=== PATIENT | female | born 1935 | race African-American/Black ===

== ENCOUNTER 2016-11-25 07:04 | Inpatient (IN) | payer MEDICARE, MEDICAID ==
[~2016-11-25] VITALS: Ht 157.5 cm; Wt 71.0 kg
[2016-11-25] VITALS (8 sets, daily range): BP systolic 107–139; BP diastolic 57–76
[~2016-11-25 07:04] MED LIST: ACET-2178 GT; LEVO137T32 GT; ZINC SULFATE GT; duoneb INH; levemir SQ; vitamin c GT
[2016-11-25] MEDS ORDERED: IPRATROPIUM BROMIDE (0.02%) 0.5MG/2.5ML NEB HHN STA (07:29)
[2016-11-25] MEDS ORDERED: METHYLPREDNISOLONE SOD SUCC 125 MG/2 ML VIAL IV STA (07:29)
[2016-11-25] MEDS ORDERED: ALBUTEROL (0.083%) 2.5MG/3ML NEB HHN STA (07:29)
[2016-11-25 07:48] LABS: BASOPHILS % 0.3 % (0.0-2.0); EOSINOPHILS % 1.6 % (0.0-5.0); HEMATOCRIT. 32.9 % (36.0-48.0); HEMOGLOBIN. 10.8 g/dL (12.0-16.0); LYMPHOCYTES % 19.5 % (20.0-50.0); MEAN CORPUSCULAR HEMOGLOBIN 29.6 pg (28.0-32.0); MEAN CORPUSCULAR VOLUME 90.5 fL (81.0-99.0); MEAN PLATELET VOLUME 8.7 fl (7.4-10.4); MONOCYTES % 7.8 % (2.0-8.0); NEUTROPHILS % 70.8 % (40.0-76.0); PLATELET 287 x1000/uL (130-400); RED BLOOD CELL COUNT 3.64 mill/uL (4.2-5.4); RED CELL DISTRIBUTION WIDTH 20.5 % (11.6-14.6)
[2016-11-25 07:54] LABS: PROTHROMBIN TIME 10.3 sec (9.4-11.6)
[2016-11-25 08:06] LABS: CARBON DIOXIDE 33 mEq/L (21-32); CHLORIDE 88 mEq/L (98-107); TROPONIN I 0.11 ng/mL (0.00-0.04)
[2016-11-25] MEDS ORDERED: SODIUM CHLORIDE 0.9% 1000ML BAG (SEPSIS BOLUS) IV ONE (08:15)
[2016-11-25] MEDS ORDERED: PIPERACILLIN/TAZ 3.375G PREMIX 50 ML IV ONE (08:30)
[2016-11-25] MEDS ORDERED: LEVOFLOXACIN 750MG PREMIX 150 ML IV ONE (08:30)
[2016-11-25 08:55] LABS: CLARITY URINE TURBID (CLEAR); COLOR URINE YELLOW (YELLOW); GLUCOSE URINE NEGATIVE (NEGATIVE); KETONES URINE NEGATIVE (NEGATIVE); LEUKOCYTE ESTERASE URINE TRACE (NEGATIVE); NITRITE URINE NEGATIVE (NEGATIVE); OCCULT BLOOD URINE NEGATIVE (NEGATIVE); PH URINE >=9.0 (4.5-8.0); PROTEIN URINE TRACE (NEGATIVE); SPECIFIC GRAVITY URINE 1.014 (1.005-1.030)
[2016-11-25] MEDS ORDERED: MAGN800O GT (12:36)
[2016-11-25] MEDS ORDERED: ACET-2178 GT (12:36)
[2016-11-25] MEDS ORDERED: FERR-71 GT (12:36)
[2016-11-25] MEDS ORDERED: ALBU2.5V13 IH (12:36)
[2016-11-25] MEDS ORDERED: ZINC220T GT (12:36)
[2016-11-25] MEDS ORDERED: LEVVL SQ (12:36)
[2016-11-25] MEDS ORDERED: BISA-81 GT (12:36)
[2016-11-25] MEDS ORDERED: MULT-1146 GT (12:36)
[2016-11-25] MEDS ORDERED: FAMO-134 GT (12:36)
[2016-11-25] MEDS ORDERED: DOCU-138 GT (12:36)
[2016-11-25] MEDS ORDERED: VITAMINE C GT (12:36)
[2016-11-25] MEDS ORDERED: HYDR-523 GT (12:36)
[2016-11-25] MEDS ORDERED: LEVO50TA GT (12:36)
[2016-11-25] MEDS ORDERED: ONDA4TAB5 GT (12:36)
[2016-11-25] MEDS ORDERED: IPRATROPIUM/ALBUTEROL 0.5-3(2.5)MG/3ML NEB INH PRN (13:15)
[2016-11-25] MEDS ORDERED: ACETAMINOPHEN 325MG TABLET GT PRN (13:15)
[2016-11-25] MEDS ORDERED: ONDANSETRON HCL 4MG/2ML VIAL IV PRN (13:15)
[2016-11-25] MEDS ORDERED: VANCOMYCIN 1 G PREMIX 200 ML IV SCH (13:15)
[2016-11-25] MEDS ORDERED: HYDROCODONE/ACETAMINOPHEN 5/325MG TABLET GT PRN (13:15)
[2016-11-25] MEDS ORDERED: SODIUM CHLORIDE 0.9% 1,000 ML IV SCH (13:15)
[2016-11-25] MEDS ORDERED: CEFTAZIDIME PENTAHYDRATE 1 G in DEXTROSE 5% WATER 50 ML IV SCH (13:15)
[2016-11-25] MEDS ORDERED: DEXTROSE 50% WATER 50ML SYRINGE IV PRN (13:45)
[2016-11-25] MEDS ORDERED: LORAZEPAM 1MG TABLET GT PRN (13:45)
[2016-11-25] MEDS ORDERED: LACTULOSE 20G/30ML UDC GT PRN (13:45)
[2016-11-25] MEDS: PANTOPRAZOLE SODIUM 40 MG/VIAL IV SCH (14:02)
[2016-11-25] MEDS: ENOXAPARIN 40MG/0.4ML SYR SUBCUT SCH (14:02)
[2016-11-25] MEDS: INSULIN LISPRO 100 UNITS/ML SUBCUT SCH ×2 (14:05→17:30)
[2016-11-25] MEDS: CEFTAZIDIME PENTAHYDRATE 1 G in DEXTROSE 5% WATER 50 ML IV SCH ×2 (14:49→23:46)
[2016-11-25] MEDS: SODIUM CHL 0.9% + KCL 20MEQ/L 1,000 ML IV SCH (14:49)
[2016-11-25] MEDS ORDERED: VANCOMYCIN 1250MG in DEXTROSE 5% WATER 250ML IV SCH (15:00)
[2016-11-25 15:31] LABS: BG BASE EXCESS 3.5 mmol/L (-2.0-2.0); BG CARBOXYHEMOGLOBIN 0.6 % (0.5-1.5); BG DEOXYHEMOGLOBIN 2.4 % (0.0-5.0); BG FRACTION INSPIRED OXYGEN 40; BG HCO3 ACT 28.6 mmol/L (22.0-26.0); BG METHEMOGLOBIN 0.2 % (0.0-1.5); BG OXYGEN SATURATION 97.6 % (92.0-98.5); BG OXYHEMOGLOBIN 96.8 % (94.0-97.0); BG PH 7.412 (7.350-7.450); BG PO2 101.3 mmHg (75.0-100.0); BG SAMPLE SITE RIGHT RADIAL; BG TIDAL VOLUME(mL) 450 mL; BG TOTAL HEMOGLOBIN 11.2 g/dL (12.0-18.0); BG VENT MODE VENT - A/C; BG VENT RATE 12 set
[2016-11-25] MEDS ORDERED: BLOOD SUGAR DIAGNOSTIC STRIP TEST SCH (17:30)
[2016-11-25] MEDS ORDERED: INSULIN LISPRO 100 UNITS/ML SUBCUT SCH (18:00)
[2016-11-25] MEDS: IPRATROPIUM/ALBUTEROL 0.5-3(2.5)MG/3ML NEB HHN SCH (20:24)
[2016-11-25] MEDS ORDERED: FAMOTIDINE 20MG TABLET GT SCH (21:00)
[2016-11-25] MEDS: BLOOD SUGAR DIAGNOSTIC STRIP TEST SCH (23:46)
[2016-11-26] VITALS (12 sets, daily range): BP systolic 113–149; BP diastolic 63–82
[2016-11-26] MEDS: IPRATROPIUM/ALBUTEROL 0.5-3(2.5)MG/3ML NEB HHN SCH ×4 (02:27→20:17)
[2016-11-26] MEDS: SODIUM CHL 0.9% + KCL 20MEQ/L 1,000 ML IV SCH ×3 (06:40→23:45)
[2016-11-26] MEDS: BLOOD SUGAR DIAGNOSTIC STRIP TEST SCH ×3 (06:40→17:24)
[2016-11-26] MEDS: LEVOTHYROXINE SODIUM 75MCG TABLET GT SCH (06:40)
[2016-11-26] MEDS: INSULIN LISPRO 100 UNITS/ML SUBCUT SCH ×4 (06:53→17:27)
[2016-11-26 07:28] LABS: HEMATOCRIT. 28.6 % (36.0-48.0); HEMOGLOBIN. 9.6 g/dL (12.0-16.0); MEAN CORPUSCULAR HEMOGLOBIN 30.4 pg (28.0-32.0); MEAN CORPUSCULAR VOLUME 90.4 fL (81.0-99.0); MEAN PLATELET VOLUME 8.8 fl (7.4-10.4); PLATELET 273 x1000/uL (130-400); RED BLOOD CELL COUNT 3.16 mill/uL (4.2-5.4); RED CELL DISTRIBUTION WIDTH 19.9 % (11.6-14.6)
[2016-11-26 08:08] LABS: CARBON DIOXIDE 32 mEq/L (21-32); CHLORIDE 97 mEq/L (98-107)
[2016-11-26] MEDS: PANTOPRAZOLE SODIUM 40 MG/VIAL IV SCH (08:24)
[2016-11-26] MEDS: DOCUSATE SODIUM SUGAR FREE 100MG/10ML UDC NG SCH (08:24)
[2016-11-26] MEDS: ENOXAPARIN 40MG/0.4ML SYR SUBCUT SCH (08:25)
[2016-11-26] MEDS: CEFTAZIDIME PENTAHYDRATE 1 G in DEXTROSE 5% WATER 50 ML IV SCH ×2 (08:25→20:22)
[2016-11-26] MEDS: INSULIN DETEMIR UD 100 UNITS/ML SYR SUBCUT SCH (10:23)
[2016-11-26] MEDS ORDERED: POTASSIUM PHOS,M-BASIC-D-BASIC 20 MMOL in DEXT 5% WATER 243.3333 ML IV NR (11:00)
[2016-11-26] MEDS: VANCOMYCIN 1 G PREMIX 200 ML IV SCH (11:59)
[2016-11-26 16:52] LABS: PLATELET ESTIMATE NORMAL
[2016-11-27] VITALS (13 sets, daily range): BP systolic 105–143; BP diastolic 55–88
[2016-11-27] MEDS: BLOOD SUGAR DIAGNOSTIC STRIP TEST SCH ×4 (00:36→17:38)
[2016-11-27] MEDS: INSULIN LISPRO 100 UNITS/ML SUBCUT SCH ×4 (00:45→17:49)
[2016-11-27] MEDS: IPRATROPIUM/ALBUTEROL 0.5-3(2.5)MG/3ML NEB HHN SCH ×4 (01:49→20:40)
[2016-11-27] MEDS: SODIUM CHL 0.9% + KCL 20MEQ/L 1,000 ML IV SCH ×2 (04:30→17:47)
[2016-11-27] MEDS: VANCOMYCIN 1 G PREMIX 200 ML IV SCH (06:25)
[2016-11-27] MEDS: LEVOTHYROXINE SODIUM 75MCG TABLET GT SCH (06:29)
[2016-11-27 07:36] LABS: HEMATOCRIT. 27.2 % (36.0-48.0); MEAN CORPUSCULAR HEMOGLOBIN 29.5 pg (28.0-32.0); MEAN CORPUSCULAR VOLUME 89.3 fL (81.0-99.0); RED BLOOD CELL COUNT 3.05 mill/uL (4.2-5.4); RED CELL DISTRIBUTION WIDTH 20.6 % (11.6-14.6)
[2016-11-27 08:32] LABS: CARBON DIOXIDE 30 mEq/L (21-32); CHLORIDE 102 mEq/L (98-107); PHOSPHORUS 1.4 mg/dL (2.5-4.9); VANCOMYCIN TROUGH 13.6 ug/mL (5.0-10.0)
[2016-11-27] MEDS: PANTOPRAZOLE SODIUM 40 MG/VIAL IV SCH (09:33)
[2016-11-27] MEDS: CEFTAZIDIME PENTAHYDRATE 1 G in DEXTROSE 5% WATER 50 ML IV SCH ×2 (09:33→21:14)
[2016-11-27] MEDS: DOCUSATE SODIUM SUGAR FREE 100MG/10ML UDC NG SCH (09:33)
[2016-11-27] MEDS: ENOXAPARIN 40MG/0.4ML SYR SUBCUT SCH (09:33)
[2016-11-27] MEDS: INSULIN DETEMIR UD 100 UNITS/ML SYR SUBCUT SCH (10:10)
[2016-11-27] MEDS ORDERED: POTASSIUM PHOS,M-BASIC-D-BASIC 20 MMOL in DEXT 5% WATER 243.3333 ML IV SCH (11:00)
[2016-11-27] MEDS ORDERED: LIDOCAINE HCL 1% 20ML VIAL (Pyxis) INJ ONE (11:17)
[2016-11-27] MEDS ORDERED: SODIUM BICARBONATE 4% (2.4MEQ) 5ML VIAL IV ONE (11:17)
[2016-11-27 11:39] LABS: PLATELET ESTIMATE NORMAL
[2016-11-27 11:40] LABS: MEAN PLATELET VOLUME 9.6 fl (7.4-10.4); PLATELET 227 x1000/uL (130-400)
[2016-11-27] MEDS ORDERED: HEPARIN 100 UNITS/1 ML VIAL IVF PRN (12:15)
[2016-11-28] VITALS (15 sets, daily range): BP systolic 92–149; BP diastolic 51–81
[2016-11-28] MEDS: INSULIN LISPRO 100 UNITS/ML SUBCUT SCH ×4 (00:29→18:07)
[2016-11-28] MEDS: VANCOMYCIN 1 G PREMIX 200 ML IV SCH ×2 (00:30→21:42)
[2016-11-28] MEDS: BLOOD SUGAR DIAGNOSTIC STRIP TEST SCH ×4 (00:30→17:29)
[2016-11-28] MEDS: IPRATROPIUM/ALBUTEROL 0.5-3(2.5)MG/3ML NEB HHN SCH ×4 (02:19→20:16)
[2016-11-28] MEDS: LEVOTHYROXINE SODIUM 75MCG TABLET GT SCH (06:23)
[2016-11-28] MEDS: SODIUM CHL 0.9% + KCL 20MEQ/L 1,000 ML IV SCH ×2 (06:25→14:23)
[2016-11-28 06:55] LABS: HEMATOCRIT. 29.1 % (36.0-48.0); HEMOGLOBIN. 9.6 g/dL (12.0-16.0); MEAN CORPUSCULAR HEMOGLOBIN 30.2 pg (28.0-32.0); MEAN CORPUSCULAR VOLUME 91.5 fL (81.0-99.0); MEAN PLATELET VOLUME 8.6 fl (7.4-10.4); PLATELET 246 x1000/uL (130-400); RED BLOOD CELL COUNT 3.18 mill/uL (4.2-5.4); RED CELL DISTRIBUTION WIDTH 20.3 % (11.6-14.6)
[2016-11-28 07:20] LABS: CARBON DIOXIDE 28 mEq/L (21-32); CHLORIDE 100 mEq/L (98-107); PHOSPHORUS 1.6 mg/dL (2.5-4.9)
[2016-11-28] MEDS: ENOXAPARIN 40MG/0.4ML SYR SUBCUT SCH (08:28)
[2016-11-28] MEDS: DOCUSATE SODIUM SUGAR FREE 100MG/10ML UDC NG SCH (08:28)
[2016-11-28] MEDS: CEFTAZIDIME PENTAHYDRATE 1 G in DEXTROSE 5% WATER 50 ML IV SCH ×2 (08:28→20:11)
[2016-11-28] MEDS: PANTOPRAZOLE SODIUM 40 MG/VIAL IV SCH (08:28)
[2016-11-28] MEDS: INSULIN DETEMIR UD 100 UNITS/ML SYR SUBCUT SCH (11:33)
[2016-11-28] MEDS: POTASSIUM-SODIUM PHOSPHATE POWDER PACKET PO SCH ×2 (14:24→17:09)
[2016-11-28 17:12] LABS: T4 FREE 0.53 ng/dL (0.76-1.46)
[2016-11-28 17:16] LABS: PLATELET ESTIMATE NORMAL
[2016-11-28] MEDS ORDERED: POTASSIUM PHOS,M-BASIC-D-BASIC 20 MMOL in DEXT 5% WATER 243.3333 ML IV NR (21:00)
[2016-11-29] VITALS (10 sets, daily range): BP systolic 99–181; BP diastolic 50–94
[2016-11-29] MEDS: INSULIN LISPRO 100 UNITS/ML SUBCUT SCH ×3 (00:01→12:10)
[2016-11-29] MEDS: IPRATROPIUM/ALBUTEROL 0.5-3(2.5)MG/3ML NEB HHN SCH ×3 (02:01→12:28)
[2016-11-29 07:00] LABS: HEMATOCRIT. 28.6 % (36.0-48.0); HEMOGLOBIN. 9.6 g/dL (12.0-16.0); MEAN CORPUSCULAR HEMOGLOBIN 30.5 pg (28.0-32.0); MEAN CORPUSCULAR VOLUME 90.6 fL (81.0-99.0); MEAN PLATELET VOLUME 8.2 fl (7.4-10.4); PLATELET 232 x1000/uL (130-400); RED BLOOD CELL COUNT 3.16 mill/uL (4.2-5.4); RED CELL DISTRIBUTION WIDTH 20.2 % (11.6-14.6)
[2016-11-29 08:09] LABS: CARBON DIOXIDE 26 mEq/L (21-32); CHLORIDE 101 mEq/L (98-107); PHOSPHORUS 2.6 mg/dL (2.5-4.9)
[2016-11-29] MEDS ORDERED: LEVOTHYROXINE SODIUM 100MCG TABLET GT SCH (09:00)
[2016-11-29] MEDS ORDERED: FAMOTIDINE 20MG/2ML VIAL IV SCH (09:00)
[2016-11-29] MEDS: ENOXAPARIN 40MG/0.4ML SYR SUBCUT SCH (09:40)
[2016-11-29] MEDS: DOCUSATE SODIUM SUGAR FREE 100MG/10ML UDC NG SCH (09:41)
[2016-11-29] MEDS: CEFTAZIDIME PENTAHYDRATE 1 G in DEXTROSE 5% WATER 50 ML IV SCH (09:42)
[2016-11-29] MEDS: INSULIN DETEMIR UD 100 UNITS/ML SYR SUBCUT SCH (09:43)
[2016-11-29] MEDS: POTASSIUM-SODIUM PHOSPHATE POWDER PACKET PO SCH (09:45)
[2016-11-29] MEDS: BLOOD SUGAR DIAGNOSTIC STRIP TEST SCH ×3 (12:00→12:11)
[2016-11-29] MEDS ORDERED: FUROSEMIDE 40MG/4ML VIAL IVP SCH (13:00)
[2016-11-29] MEDS: VANCOMYCIN 1 G PREMIX 200 ML IV SCH (13:07)
[2016-11-29 16:11] LABS: PLATELET ESTIMATE NORMAL
== END 2016-11-29 17:40 | DRG 720 ==
LOC: ER 07:38 → 5EST 08:36 → EDBEDREQ 08:39 → EDBEDREQTM 08:39 → ENRESERV 09:18 → 5EST 21:55
PROVIDERS: ADMIT Internal Medicine; ATTEND Internal Medicine
PROC: 5A1955Z Respiratory Ventilation, Greater than 96 Consecutive Hours (ICD-10-PCS; principal; 2016-11-25)
PROC: 02HV33Z Insertion of Infusion Device into Superior Vena Cava, Percutaneous Approach (ICD-10-PCS; 2016-11-27)
PROC: B548ZZA Ultrasonography of Superior Vena Cava, Guidance (ICD-10-PCS; 2016-11-27)
DX: A41.9 Sepsis, unspecified organism (principal); J96.21 Acute and chronic respiratory failure with hypoxia; J69.0 Pneumonitis due to inhalation of food and vomit; E43 Unspecified severe protein-calorie malnutrition; G82.50 Quadriplegia, unspecified; G93.40 Encephalopathy, unspecified; L89.154 Pressure ulcer of sacral region, stage 4; J95.851 Ventilator associated pneumonia; E86.0 Dehydration; E11.65 Type 2 diabetes mellitus with hyperglycemia; D64.9 Anemia, unspecified; G35 Multiple sclerosis; B96.20 Unspecified Escherichia coli [E. coli] as the cause of diseases classified elsewhere; E03.9 Hypothyroidism, unspecified; E83.39 Other disorders of phosphorus metabolism; E87.6 Hypokalemia; F03.90 Unspecified dementia, unspecified severity, without behavioral disturbance, psychotic disturbance, mood disturbance, and anxiety; I25.10 Atherosclerotic heart disease of native coronary artery without angina pectoris; E11.51 Type 2 diabetes mellitus with diabetic peripheral angiopathy without gangrene; J44.9 Chronic obstructive pulmonary disease, unspecified; K21.9 Gastro-esophageal reflux disease without esophagitis; M19.90 Unspecified osteoarthritis, unspecified site; N39.0 Urinary tract infection, site not specified; R13.10 Dysphagia, unspecified; Z79.899 Other long term (current) drug therapy; Z99.11 Dependence on respirator [ventilator] status; Z93.0 Tracheostomy status; Z93.1 Gastrostomy status; Z86.73 Personal history of transient ischemic attack (TIA), and cerebral infarction without residual deficits; Z68.28 Body mass index [BMI] 28.0-28.9, adult
CPT/HCPCS: 36415; 36569; 36600; 71010; 76937; 80048; 80053; 80202; 81001; 82375; 82805; 82962; 83605; 83735; 83880; 84100; 84439; 84443; 84481; 84484; 85025; 85610; 87040; 87077; 87086; 87186; 93005; 94002; 94003; 94640; 94664; 96365; 96375; 99291; A6261; C1725; C9113; J0713; J1650; J1815; J1940; J1956; J2543; J2930; J3370; J3480; J3490; J7030; J7040; J7050; J7060; J7611; J7620; A4315

== ENCOUNTER 2017-08-07 12:02 | Inpatient (IN) | payer MEDICARE, MEDICAID ==
[~2017-08-07] VITALS: Ht 157.5 cm; Wt 79.4 kg
[~2017-08-07 12:02] MED LIST changes: +ALBU2.5V13 IH; +BISA-81 GT; +DOCU-138 GT; +FAMO-134 GT; +FERR-71 GT; +HYDR-523 GT; +LEVO50TA GT; +LEVVL SQ; +MAGN800O GT; +MULT-1146 GT; +ONDA4TAB5 GT; +VITAMINE C GT; +ZINC220T GT
[2017-08-07 13:37] LABS: EOSINOPHILS % 0.4 % (0.0-5.0); HEMATOCRIT. 21.7 % (36.0-48.0); HEMOGLOBIN. 7.2 g/dL (12.0-16.0); LYMPHOCYTES % 12.4 % (20.0-50.0); MEAN CORPUSCULAR HEMOGLOBIN 27.1 pg (28.0-32.0); MEAN CORPUSCULAR VOLUME 81.9 fL (81.0-99.0); MONOCYTES % 9.3 % (2.0-8.0); NEUTROPHILS % 76.9 % (40.0-76.0); PLATELET 510 x1000/uL (130-400); RED BLOOD CELL COUNT 2.65 mill/uL (4.2-5.4); RED CELL DISTRIBUTION WIDTH 17.4 % (11.6-14.6)
[2017-08-07 13:42] LABS: CHLORIDE 63 mEq/L (98-107)
[2017-08-07 13:46] LABS: PARTIAL THROMBOPLASTIN TIME 25.7 sec (23.4-31.0); PROTHROMBIN TIME 10.7 sec (9.4-11.6)
[2017-08-07 20:00] VITALS: BP_SYST 105; BP_SYST 96; BP_DIAS 46; BP_DIAS 71
[2017-08-07] MEDS ORDERED: IPRATROPIUM/ALBUTEROL 0.5-3(2.5)MG/3ML NEB HHN PRN (20:15)
[2017-08-07] MEDS ORDERED: ACETAMINOPHEN 325MG TABLET GT PRN (20:15)
[2017-08-07] MEDS ORDERED: DEXTROSE 50% WATER 50ML SYRINGE IV PRN ×3 (20:15)
[2017-08-07] MEDS ORDERED: HYDROCODONE/ACETAMINOPHEN 5/325MG TABLET PO PRN (20:15)
[2017-08-07] MEDS ORDERED: BLOOD SUGAR DIAGNOSTIC STRIP TEST SCH (21:00)
[2017-08-07] MEDS ORDERED: INSULIN LISPRO 100 UNITS/ML SUBCUT SCH (21:00)
[2017-08-07] MEDS: FAMOTIDINE 20MG TABLET GT SCH (21:33)
[2017-08-07 22:00] VITALS: BP 133/70
[2017-08-07 22:15] VITALS: BP 112/52
[2017-08-07 22:30] VITALS: BP 105/56
[2017-08-07 23:30] VITALS: BP 103/65
[2017-08-08] VITALS (13 sets, daily range): BP systolic 84–116; BP diastolic 32–61
[2017-08-08] MEDS: INSULIN LISPRO 100 UNITS/ML SUBCUT SCH ×4 (00:25→18:31)
[2017-08-08] MEDS: BLOOD SUGAR DIAGNOSTIC STRIP TEST SCH ×4 (00:26→18:05)
[2017-08-08 07:12] LABS: BASOPHILS % 0.2 % (0.0-2.0); EOSINOPHILS % 0.3 % (0.0-5.0); HEMATOCRIT. 26.8 % (36.0-48.0); LYMPHOCYTES % 7.4 % (20.0-50.0); MEAN CORPUSCULAR HEMOGLOBIN 28.3 pg (28.0-32.0); MEAN CORPUSCULAR VOLUME 84.3 fL (81.0-99.0); MEAN PLATELET VOLUME 8.1 fl (7.4-10.4); MONOCYTES % 5.5 % (2.0-8.0); NEUTROPHILS % 86.6 % (40.0-76.0); PLATELET 477 x1000/uL (130-400); RED BLOOD CELL COUNT 3.18 mill/uL (4.2-5.4); RED CELL DISTRIBUTION WIDTH 16.5 % (11.6-14.6)
[2017-08-08] MEDS ORDERED: LEVOTHYROXINE SODIUM 125MCG TABLET GT SCH (07:30)
[2017-08-08] MEDS: IPRATROPIUM/ALBUTEROL 0.5-3(2.5)MG/3ML NEB HHN SCH ×4 (08:15→23:43)
[2017-08-08 08:26] LABS: CLARITY URINE TURBID (CLEAR); COLOR URINE RED (YELLOW); KETONES URINE NEGATIVE (NEGATIVE); LEUKOCYTE ESTERASE URINE 3+ (NEGATIVE); NITRITE URINE POSITIVE (NEGATIVE); OCCULT BLOOD URINE 3+ (NEGATIVE); PH URINE >=9.0 (4.5-8.0); PROTEIN URINE 3+ (NEGATIVE); SPECIFIC GRAVITY URINE 1.015 (1.005-1.030)
[2017-08-08] MEDS ORDERED: DOCUSATE SODIUM SUGAR FREE 100MG/10ML UDC GT SCH (09:00)
[2017-08-08] MEDS ORDERED: POTASSIUM CHLORIDE 20MEQ/PACKET GT SCH (09:00)
[2017-08-08] MEDS: MULTIVITAMINS,THER W-MINERALS TABLET GT SCH (09:12)
[2017-08-08 09:16] LABS: BG BASE EXCESS 23.2 mmol/L (-2.0-2.0); BG CARBOXYHEMOGLOBIN 0.4 % (0.5-1.5); BG DEOXYHEMOGLOBIN 3.7 % (0.0-5.0); BG FRACTION INSPIRED OXYGEN 40; BG HCO3 ACT 47.8 mmol/L (22.0-26.0); BG METHEMOGLOBIN 0.2 % (0.0-1.5); BG OXYGEN SATURATION 96.3 % (92.0-98.5); BG OXYHEMOGLOBIN 95.7 % (94.0-97.0); BG PCO2 51.4 mmHg (35.0-45.0); BG PH 7.586 (7.350-7.450); BG PO2 79.5 mmHg (75.0-100.0); BG SAMPLE SITE RIGHT RADIAL; BG TIDAL VOLUME(mL) 450 mL; BG TOTAL HEMOGLOBIN 10.4 g/dL (12.0-18.0); BG VENT MODE VENT - A/C; BG VENT RATE 12 set
[2017-08-08 09:33] LABS: PHOSPHORUS 1.4 mg/dL (2.5-4.9)
[2017-08-08] MEDS ORDERED: INSULIN GLARGINE UD 100 UNITS/ML SYR SUBCUT SCH (10:00)
[2017-08-08] MEDS ORDERED: POLYETHYLENE GLYCOL 3350 (17GM) 1 DOSE PACK PO NR (10:00)
[2017-08-08] MEDS ORDERED: ACETAZOLAMIDE 250MG TABLET PO NR ×2 (11:00→16:00)
[2017-08-08] MEDS ORDERED: POTASSIUM PHOS,M-BASIC-D-BASIC 30 MMOL in SODIUM CHLORIDE 0.9% 500 ML IV SCH (11:00)
[2017-08-08] MEDS: CEFTRIAXONE 1,000 MG in DEXTROSE 5% WATER 50 ML IV SCH (11:12)
[2017-08-08] MEDS ORDERED: VANCOMYCIN 1250MG in DEXTROSE 5% WATER 250ML IV NR (17:00)
[2017-08-08] MEDS: DOCUSATE SODIUM SUGAR FREE 100MG/10ML UDC GT SCH (17:54)
[2017-08-08] MEDS: SODIUM CHL 0.9% + KCL 20MEQ/L 1,000 ML IV SCH (18:24)
[2017-08-08] MEDS: FAMOTIDINE 20MG TABLET GT SCH (21:48)
[2017-08-09] VITALS (12 sets, daily range): BP systolic 83–124; BP diastolic 40–68
[2017-08-09] MEDS: BLOOD SUGAR DIAGNOSTIC STRIP TEST SCH ×5 (00:54→23:41)
[2017-08-09] MEDS: INSULIN LISPRO 100 UNITS/ML SUBCUT SCH ×4 (00:54→17:57)
[2017-08-09] MEDS: SODIUM CHL 0.9% + KCL 20MEQ/L 1,000 ML IV SCH ×3 (01:31→17:40)
[2017-08-09] MEDS: IPRATROPIUM/ALBUTEROL 0.5-3(2.5)MG/3ML NEB HHN SCH ×4 (01:58→21:09)
[2017-08-09] MEDS: LEVOTHYROXINE SODIUM 175MCG TABLET GT SCH (06:36)
[2017-08-09 07:00] LABS: BASOPHILS % 0.2 % (0.0-2.0); EOSINOPHILS % 0.6 % (0.0-5.0); HEMATOCRIT. 27.5 % (36.0-48.0); HEMOGLOBIN. 9.2 g/dL (12.0-16.0); LYMPHOCYTES % 9.1 % (20.0-50.0); MEAN CORPUSCULAR HEMOGLOBIN 28.7 pg (28.0-32.0); MEAN CORPUSCULAR VOLUME 85.7 fL (81.0-99.0); MEAN PLATELET VOLUME 8.1 fl (7.4-10.4); MONOCYTES % 10.2 % (2.0-8.0); NEUTROPHILS % 79.9 % (40.0-76.0); PLATELET 428 x1000/uL (130-400); RED BLOOD CELL COUNT 3.21 mill/uL (4.2-5.4); RED CELL DISTRIBUTION WIDTH 17.2 % (11.6-14.6)
[2017-08-09 07:17] LABS: PHOSPHORUS 5.4 mg/dL (2.5-4.9)
[2017-08-09] MEDS: MULTIVITAMINS,THER W-MINERALS TABLET GT SCH (09:21)
[2017-08-09] MEDS: DOCUSATE SODIUM SUGAR FREE 100MG/10ML UDC GT SCH ×2 (09:21→17:40)
[2017-08-09] MEDS: CEFTRIAXONE 1,000 MG in DEXTROSE 5% WATER 50 ML IV SCH (09:22)
[2017-08-09 09:38] LABS: BG BASE EXCESS 12.9 mmol/L (-2.0-2.0); BG CARBOXYHEMOGLOBIN 0.6 % (0.5-1.5); BG DEOXYHEMOGLOBIN 3.2 % (0.0-5.0); BG FRACTION INSPIRED OXYGEN 40; BG HCO3 ACT 37.2 mmol/L (22.0-26.0); BG METHEMOGLOBIN 0.1 % (0.0-1.5); BG OXYGEN SATURATION 96.8 % (92.0-98.5); BG OXYHEMOGLOBIN 96.1 % (94.0-97.0); BG PCO2 47.2 mmHg (35.0-45.0); BG PH 7.515 (7.350-7.450); BG PO2 90.2 mmHg (75.0-100.0); BG SAMPLE SITE RIGHT RADIAL; BG TIDAL VOLUME(mL) 450 mL; BG TOTAL HEMOGLOBIN 9.7 g/dL (12.0-18.0); BG VENT MODE VENT - A/C; BG VENT RATE 12 set
[2017-08-09] MEDS ORDERED: INSULIN GLARGINE UD 100 UNITS/ML SYR SUBCUT SCH (10:00)
[2017-08-09] MEDS ORDERED: ACETAMINOPHEN 650MG/20.3ML UDC GT PRN (10:45)
[2017-08-09] MEDS: FAMOTIDINE 20MG TABLET GT SCH (20:54)
[2017-08-09] MEDS: ACETYLCYSTEINE 100MG/ML 10% VIAL 4ML INH SCH (21:08)
[2017-08-09] MEDS ORDERED: VANCOMYCIN 750 MG PREMIX 150 ML IV SCH (23:00)
[2017-08-10] VITALS (12 sets, daily range): BP systolic 91–122; BP diastolic 40–82
[2017-08-10] MEDS: INSULIN LISPRO 100 UNITS/ML SUBCUT SCH ×4 (00:13→18:38)
[2017-08-10] MEDS: IPRATROPIUM/ALBUTEROL 0.5-3(2.5)MG/3ML NEB HHN SCH ×4 (01:11→21:15)
[2017-08-10] MEDS: BLOOD SUGAR DIAGNOSTIC STRIP TEST SCH ×3 (06:00→18:00)
[2017-08-10 07:29] LABS: BASOPHILS % 0.4 % (0.0-2.0); EOSINOPHILS % 1.8 % (0.0-5.0); HEMATOCRIT. 26.3 % (36.0-48.0); HEMOGLOBIN. 8.9 g/dL (12.0-16.0); LYMPHOCYTES % 15.3 % (20.0-50.0); MEAN CORPUSCULAR HEMOGLOBIN 29.1 pg (28.0-32.0); MEAN CORPUSCULAR VOLUME 86.4 fL (81.0-99.0); MEAN PLATELET VOLUME 7.9 fl (7.4-10.4); MONOCYTES % 13.3 % (2.0-8.0); NEUTROPHILS % 69.2 % (40.0-76.0); PLATELET 420 x1000/uL (130-400); RED BLOOD CELL COUNT 3.05 mill/uL (4.2-5.4); RED CELL DISTRIBUTION WIDTH 16.9 % (11.6-14.6)
[2017-08-10] MEDS: ACETYLCYSTEINE 100MG/ML 10% VIAL 4ML INH SCH (08:19)
[2017-08-10] MEDS: MULTIVITAMINS,THER W-MINERALS TABLET GT SCH (08:24)
[2017-08-10] MEDS: LEVOTHYROXINE SODIUM 175MCG TABLET GT SCH (08:24)
[2017-08-10] MEDS: CEFTRIAXONE 1 G PREMIX 50 ML IV SCH (08:25)
[2017-08-10] MEDS: DOCUSATE SODIUM SUGAR FREE 100MG/10ML UDC GT SCH ×2 (08:25→18:15)
[2017-08-10] MEDS ORDERED: KCL 20MEQ/100ML PREMIX 100 ML IV NR ×2 (09:00→13:00)
[2017-08-10] MEDS ORDERED: ACETAZOLAMIDE 250MG TABLET PO NR ×2 (09:00→16:00)
[2017-08-10 09:23] LABS: BG BASE EXCESS 13.9 mmol/L (-2.0-2.0); BG CARBOXYHEMOGLOBIN 0.7 % (0.5-1.5); BG DEOXYHEMOGLOBIN 1.5 % (0.0-5.0); BG FRACTION INSPIRED OXYGEN 40; BG HCO3 ACT 38.5 mmol/L (22.0-26.0); BG METHEMOGLOBIN 0.2 % (0.0-1.5); BG OXYGEN SATURATION 98.5 % (92.0-98.5); BG OXYHEMOGLOBIN 97.6 % (94.0-97.0); BG PCO2 50.1 mmHg (35.0-45.0); BG PH 7.504 (7.350-7.450); BG SAMPLE SITE LEFT RADIAL; BG TIDAL VOLUME(mL) 450 mL; BG TOTAL HEMOGLOBIN 8.7 g/dL (12.0-18.0); BG VENT MODE VENT - A/C; BG VENT RATE 12 set
[2017-08-10] MEDS ORDERED: INSULIN GLARGINE UD 100 UNITS/ML SYR SUBCUT SCH (10:00)
[2017-08-10] MEDS: SODIUM CHL 0.9% + KCL 20MEQ/L 1,000 ML IV SCH (10:14)
[2017-08-10] MEDS: FAMOTIDINE 20MG TABLET GT SCH (20:47)
[2017-08-11] VITALS (11 sets, daily range): BP systolic 91–124; BP diastolic 40–61
[2017-08-11] MEDS ORDERED: VANCOMYCIN IV SCH (00:30)
[2017-08-11] MEDS ORDERED: SODIUM CHLORIDE 0.9% IV SCH (00:30)
[2017-08-11] MEDS: BLOOD SUGAR DIAGNOSTIC STRIP TEST SCH ×4 (00:55→17:13)
[2017-08-11] MEDS: IPRATROPIUM/ALBUTEROL 0.5-3(2.5)MG/3ML NEB HHN SCH ×4 (01:31→20:00)
[2017-08-11] MEDS: INSULIN LISPRO 100 UNITS/ML SUBCUT SCH ×4 (05:30→17:25)
[2017-08-11 06:27] LABS: BASOPHILS % 0.8 % (0.0-2.0); EOSINOPHILS % 2.3 % (0.0-5.0); HEMATOCRIT. 26.1 % (36.0-48.0); HEMOGLOBIN. 8.6 g/dL (12.0-16.0); LYMPHOCYTES % 16.3 % (20.0-50.0); MEAN CORPUSCULAR HEMOGLOBIN 29.2 pg (28.0-32.0); MEAN CORPUSCULAR VOLUME 88.9 fL (81.0-99.0); MONOCYTES % 12.8 % (2.0-8.0); NEUTROPHILS % 67.8 % (40.0-76.0); PLATELET 430 x1000/uL (130-400); RED BLOOD CELL COUNT 2.94 mill/uL (4.2-5.4); RED CELL DISTRIBUTION WIDTH 17.1 % (11.6-14.6)
[2017-08-11 06:29] LABS: CHLORIDE 100 mEq/L (98-107)
[2017-08-11 06:41] LABS: PHOSPHORUS 2.7 mg/dL (2.5-4.9)
[2017-08-11] MEDS: LEVOTHYROXINE SODIUM 175MCG TABLET GT SCH (06:53)
[2017-08-11 07:43] LABS: BG BASE EXCESS 9.2 mmol/L (-2.0-2.0); BG CARBOXYHEMOGLOBIN 0.4 % (0.5-1.5); BG DEOXYHEMOGLOBIN 1.8 % (0.0-5.0); BG FRACTION INSPIRED OXYGEN 40; BG HCO3 ACT 33.9 mmol/L (22.0-26.0); BG METHEMOGLOBIN 0.3 % (0.0-1.5); BG OXYGEN SATURATION 98.2 % (92.0-98.5); BG OXYHEMOGLOBIN 97.5 % (94.0-97.0); BG PCO2 48.1 mmHg (35.0-45.0); BG PH 7.466 (7.350-7.450); BG PO2 121.2 mmHg (75.0-100.0); BG SAMPLE SITE RIGHT RADIAL; BG TIDAL VOLUME(mL) 450 mL; BG TOTAL HEMOGLOBIN 8.9 g/dL (12.0-18.0); BG VENT MODE VENT - A/C; BG VENT RATE 12 set
[2017-08-11] MEDS: ACETYLCYSTEINE 100MG/ML 10% VIAL 4ML INH SCH ×2 (08:23→14:06)
[2017-08-11] MEDS ORDERED: POTASSIUM CHLORIDE 20MEQ/PACKET PO ONE (08:45)
[2017-08-11] MEDS ORDERED: POTASSIUM CHLORIDE 20MEQ/PACKET PO NR (09:00)
[2017-08-11] MEDS ORDERED: ACETAZOLAMIDE 250MG TABLET PO NR (09:00)
[2017-08-11] MEDS: CEFTRIAXONE 1 G PREMIX 50 ML IV SCH (09:20)
[2017-08-11] MEDS: MULTIVITAMINS,THER W-MINERALS TABLET GT SCH (09:20)
[2017-08-11] MEDS: SODIUM CHL 0.45% + KCL 20MEQ/L 1,000 ML IV SCH ×2 (09:21→22:32)
[2017-08-11] MEDS: DOCUSATE SODIUM SUGAR FREE 100MG/10ML UDC GT SCH ×2 (09:41→17:23)
[2017-08-11] MEDS: INSULIN GLARGINE UD 100 UNITS/ML SYR SUBCUT SCH (11:31)
[2017-08-11] MEDS ORDERED: KCL 20MEQ/100ML PREMIX 100 ML IV NR ×2 (12:00→14:00)
[2017-08-11] MEDS: FAMOTIDINE 20MG TABLET GT SCH (22:32)
[2017-08-12] VITALS (12 sets, daily range): BP systolic 84–124; BP diastolic 39–64
[2017-08-12] MEDS: BLOOD SUGAR DIAGNOSTIC STRIP TEST SCH ×4 (00:53→17:26)
[2017-08-12] MEDS: INSULIN LISPRO 100 UNITS/ML SUBCUT SCH ×4 (00:58→17:31)
[2017-08-12] MEDS: IPRATROPIUM/ALBUTEROL 0.5-3(2.5)MG/3ML NEB HHN SCH ×4 (01:54→20:39)
[2017-08-12] MEDS: ACETYLCYSTEINE 100MG/ML 10% VIAL 4ML INH SCH ×2 (07:45→14:06)
[2017-08-12] MEDS: CEFTRIAXONE 1 G PREMIX 50 ML IV SCH (08:06)
[2017-08-12] MEDS: LEVOTHYROXINE SODIUM 175MCG TABLET GT SCH (08:06)
[2017-08-12] MEDS: MULTIVITAMINS,THER W-MINERALS TABLET GT SCH (08:06)
[2017-08-12] MEDS: DOCUSATE SODIUM SUGAR FREE 100MG/10ML UDC GT SCH ×2 (08:06→17:30)
[2017-08-12] MEDS: INSULIN GLARGINE UD 100 UNITS/ML SYR SUBCUT SCH (08:57)
[2017-08-12] MEDS ORDERED: KCL 20MEQ/100ML PREMIX 100 ML IV NR ×2 (09:00→10:30)
[2017-08-12] MEDS: SODIUM CHL 0.45% + KCL 20MEQ/L 1,000 ML IV SCH (11:40)
[2017-08-12 11:56] LABS: BASOPHILS % 0.5 % (0.0-2.0); EOSINOPHILS % 2.2 % (0.0-5.0); HEMATOCRIT. 27.5 % (36.0-48.0); HEMOGLOBIN. 8.8 g/dL (12.0-16.0); LYMPHOCYTES % 16.1 % (20.0-50.0); MEAN CORPUSCULAR HEMOGLOBIN 28.7 pg (28.0-32.0); MEAN CORPUSCULAR VOLUME 89.6 fL (81.0-99.0); MEAN PLATELET VOLUME 7.8 fl (7.4-10.4); MONOCYTES % 9.8 % (2.0-8.0); NEUTROPHILS % 71.4 % (40.0-76.0); PLATELET 415 x1000/uL (130-400); RED BLOOD CELL COUNT 3.07 mill/uL (4.2-5.4); RED CELL DISTRIBUTION WIDTH 17.6 % (11.6-14.6)
[2017-08-12 12:21] LABS: CHLORIDE 111 mEq/L (98-107)
[2017-08-12 12:27] LABS: PHOSPHORUS 2.8 mg/dL (2.5-4.9)
[2017-08-12] MEDS: DEXT 5% WATER + KCL 20MEQ/L 1,000 ML IV SCH (13:56)
[2017-08-12] MEDS ORDERED: INSULIN GLARGINE UD 100 UNITS/ML SYR SUBCUT NR (14:00)
[2017-08-12] MEDS ORDERED: INSULIN GLARGINE UD 100 UNITS/ML SYR SUBCUT SCH (22:00)
[2017-08-12] MEDS: FAMOTIDINE 20MG TABLET GT SCH (23:29)
[2017-08-13] VITALS (13 sets, daily range): BP systolic 105–148; BP diastolic 34–78
[2017-08-13] MEDS: BLOOD SUGAR DIAGNOSTIC STRIP TEST SCH ×4 (00:50→17:20)
[2017-08-13] MEDS: INSULIN LISPRO 100 UNITS/ML SUBCUT SCH ×4 (01:08→17:35)
[2017-08-13] MEDS: IPRATROPIUM/ALBUTEROL 0.5-3(2.5)MG/3ML NEB HHN SCH ×3 (01:52→14:35)
[2017-08-13] MEDS: DEXT 5% WATER + KCL 20MEQ/L 1,000 ML IV SCH (02:43)
[2017-08-13] MEDS: LEVOTHYROXINE SODIUM 175MCG TABLET GT SCH (06:41)
[2017-08-13 06:58] LABS: BASOPHILS % 0.7 % (0.0-2.0); EOSINOPHILS % 2.4 % (0.0-5.0); HEMATOCRIT. 24.7 % (36.0-48.0); HEMOGLOBIN. 8.1 g/dL (12.0-16.0); LYMPHOCYTES % 15.1 % (20.0-50.0); MEAN CORPUSCULAR VOLUME 88.7 fL (81.0-99.0); MEAN PLATELET VOLUME 7.9 fl (7.4-10.4); MONOCYTES % 8.2 % (2.0-8.0); NEUTROPHILS % 73.6 % (40.0-76.0); PLATELET 361 x1000/uL (130-400); RED BLOOD CELL COUNT 2.79 mill/uL (4.2-5.4); RED CELL DISTRIBUTION WIDTH 17.4 % (11.6-14.6)
[2017-08-13 07:38] LABS: CHLORIDE 108 mEq/L (98-107)
[2017-08-13 07:44] LABS: PHOSPHORUS 2.3 mg/dL (2.5-4.9)
[2017-08-13] MEDS: ACETYLCYSTEINE 100MG/ML 10% VIAL 4ML INH SCH ×2 (07:50→14:35)
[2017-08-13] MEDS: MULTIVITAMINS,THER W-MINERALS TABLET GT SCH (09:42)
[2017-08-13] MEDS: CEFTRIAXONE 1 G PREMIX 50 ML IV SCH (09:42)
[2017-08-13] MEDS: DOCUSATE SODIUM SUGAR FREE 100MG/10ML UDC GT SCH ×2 (09:42→17:34)
[2017-08-13] MEDS ORDERED: INSULIN GLARGINE UD 100 UNITS/ML SYR SUBCUT SCH (10:00)
[2017-08-13] MEDS ORDERED: DEXT 5% WATER + KCL 20MEQ/L 1,000 ML IV SCH (11:00)
[2017-08-13] MEDS ORDERED: POTASSIUM PHOS,M-BASIC-D-BASIC 15 MMOL in DEXT 5% WATER 245 ML IV NR (12:00)
== END 2017-08-13 20:20 | DRG 720 ==
LOC: ER 12:12 → EDBEDREQSVC 14:57 → 5EST 15:12 → EDBEDREQ 15:16 → EDBEDREQTM 15:16 → ENRESERV 15:21 → CANBEDREQ 18:01 → 5EST 19:00
PROVIDERS: ADMIT Internal Medicine; ATTEND Internal Medicine
PROC: 5A1955Z Respiratory Ventilation, Greater than 96 Consecutive Hours (ICD-10-PCS; principal; 2017-08-07)
PROC: 30233N1 Transfusion of Nonautologous Red Blood Cells into Peripheral Vein, Percutaneous Approach (ICD-10-PCS; 2017-08-07)
DX: A41.9 Sepsis, unspecified organism (principal); J96.20 Acute and chronic respiratory failure, unspecified whether with hypoxia or hypercapnia; J69.0 Pneumonitis due to inhalation of food and vomit; E43 Unspecified severe protein-calorie malnutrition; J84.9 Interstitial pulmonary disease, unspecified; N17.9 Acute kidney failure, unspecified; L89.154 Pressure ulcer of sacral region, stage 4; R13.10 Dysphagia, unspecified; J95.851 Ventilator associated pneumonia; F03.90 Unspecified dementia, unspecified severity, without behavioral disturbance, psychotic disturbance, mood disturbance, and anxiety; N30.91 Cystitis, unspecified with hematuria; E86.0 Dehydration; E11.65 Type 2 diabetes mellitus with hyperglycemia; E87.8 Other disorders of electrolyte and fluid balance, not elsewhere classified; E87.6 Hypokalemia; E87.1 Hypo-osmolality and hyponatremia; E83.39 Other disorders of phosphorus metabolism; E03.9 Hypothyroidism, unspecified; D64.9 Anemia, unspecified; I25.10 Atherosclerotic heart disease of native coronary artery without angina pectoris; E11.51 Type 2 diabetes mellitus with diabetic peripheral angiopathy without gangrene; J44.9 Chronic obstructive pulmonary disease, unspecified; K21.9 Gastro-esophageal reflux disease without esophagitis; N13.30 Unspecified hydronephrosis; Z66 Do not resuscitate; G35 Multiple sclerosis; R79.89 Other specified abnormal findings of blood chemistry; R31.0 Gross hematuria; B95.2 Enterococcus as the cause of diseases classified elsewhere; Z16.21 Resistance to vancomycin; Z79.4 Long term (current) use of insulin; Z85.51 Personal history of malignant neoplasm of bladder; Z86.73 Personal history of transient ischemic attack (TIA), and cerebral infarction without residual deficits; Z99.11 Dependence on respirator [ventilator] status; Z93.0 Tracheostomy status; Z93.1 Gastrostomy status; Z87.440 Personal history of urinary (tract) infections; Z87.01 Personal history of pneumonia (recurrent); Z93.3 Colostomy status; Z79.899 Other long term (current) drug therapy; Z68.32 Body mass index [BMI] 32.0-32.9, adult
CPT/HCPCS: 36415; 36600; 71045; 76770; 80048; 80053; 80202; 81003; 82270; 82375; 82436; 82533; 82570; 82805; 82962; 83735; 83880; 83935; 84100; 84300; 84439; 84443; 84484; 85025; 85610; 85730; 86850; 86900; 86920; 87040; 87086; 93005; 93306; 94002; 94003; 94640; 99291; A6261; J0696; J1815; J3370; J3480; J3490; J7030; J7040; J7050; J7060; J7608; J7620; P9016

== ENCOUNTER 2018-04-08 16:48 | Inpatient (IN) | payer MEDICARE, MEDICAID ==
[~2018-04-08] VITALS: Ht 165.1 cm; Wt 92.6 kg
[2018-04-08] MEDS ORDERED: SODIUM CHLORIDE 0.9% 1,000 ML IV ONE (17:19)
[2018-04-08 17:59] LABS: BG BASE EXCESS 10.8 mmol/L (-2.0-2.0); BG CARBOXYHEMOGLOBIN 0.9 % (0.5-1.5); BG FRACTION INSPIRED OXYGEN 40; BG HCO3 ACT 36.2 mmol/L (22.0-26.0); BG METHEMOGLOBIN 0.3 % (0.0-1.5); BG OXYHEMOGLOBIN 96.8 % (94.0-97.0); BG PCO2 54.4 mmHg (35.0-45.0); BG PH 7.441 (7.350-7.450); BG PO2 105.2 mmHg (75.0-100.0); BG SAMPLE SITE RIGHT RADIAL; BG TIDAL VOLUME(mL) 450 mL; BG TOTAL HEMOGLOBIN 8.1 g/dL (12.0-18.0); BG VENT MODE VENT - A/C; BG VENT RATE 12 set
[2018-04-08] MEDS ORDERED: LEVOFLOXACIN 500MG PREMIX 100 ML IV ONE (18:15)
[2018-04-08] MEDS ORDERED: PIPERACILLIN/TAZ 3.375G PREMIX 50 ML IV ONE (18:15)
[2018-04-08 18:37] LABS: CHLORIDE 88 mEq/L (98-107)
[2018-04-08 18:38] LABS: PARTIAL THROMBOPLASTIN TIME 28.5 sec (23.4-31.0)
[2018-04-08 18:39] LABS: HEMATOCRIT. 21.5 % (36.0-48.0); HEMOGLOBIN. 7.1 g/dL (12.0-16.0); MEAN CORPUSCULAR HEMOGLOBIN 31.3 pg (28.0-32.0); MEAN CORPUSCULAR VOLUME 95.1 fL (81.0-99.0); MEAN PLATELET VOLUME 9.2 fl (7.4-10.4); PLATELET 288 x1000/uL (130-400); RED BLOOD CELL COUNT 2.26 mill/uL (4.2-5.4); RED CELL DISTRIBUTION WIDTH 16.2 % (11.6-14.6)
[2018-04-08 18:44] LABS: TOTAL IRON BINDING CAPACITY 175 ug/dL (250-450)
[2018-04-08] MEDS ORDERED: SODIUM CHLORIDE 0.9% 1000ML BAG (SEPSIS BOLUS) IV ONE (18:45)
[2018-04-08 18:58] LABS: CLARITY URINE CLOUDY (CLEAR); COLOR URINE YELLOW (YELLOW); KETONES URINE NEGATIVE (NEGATIVE); LEUKOCYTE ESTERASE URINE 3+ (NEGATIVE); NITRITE URINE NEGATIVE (NEGATIVE); OCCULT BLOOD URINE NEGATIVE (NEGATIVE); PH URINE 7.5 (4.5-8.0); PROTEIN URINE 1+ (NEGATIVE); SPECIFIC GRAVITY URINE 1.016 (1.005-1.030); UROBILINOGEN URINE 0.2 E.U./dL (0.2-1.0)
[2018-04-08 19:19] LABS: NUCLEATED RED BLOOD CELLS 1 /100 WBC
[2018-04-08 19:20] LABS: PLATELET ESTIMATE NORMAL
[2018-04-08 21:46] VITALS: BP 139/78
[2018-04-08 22:00] VITALS: BP 138/78
[2018-04-08 23:00] VITALS: BP 138/78
[2018-04-09] VITALS (16 sets, daily range): BP systolic 93–136; BP diastolic 45–69
[2018-04-09] MEDS ORDERED: DEXTROSE 50% WATER 50ML SYRINGE IV PRN (00:45)
[2018-04-09] MEDS ORDERED: IPRATROPIUM/ALBUTEROL 0.5-3(2.5)MG/3ML NEB HHN PRN (00:45)
[2018-04-09] MEDS: SODIUM CHLORIDE 0.9% 1,000 ML IV SCH ×2 (01:00→17:50)
[2018-04-09] MEDS ORDERED: PIPERACILLIN/TAZ 2.25G PREMIX 50 ML IV SCH (02:00)
[2018-04-09] MEDS ORDERED: VANCOMYCIN 1500MG in DEXTROSE 5% WATER 250ML IV SCH (03:00)
[2018-04-09 06:30] LABS: HEMATOCRIT. 23.5 % (36.0-48.0); HEMOGLOBIN. 7.6 g/dL (12.0-16.0); MEAN CORPUSCULAR HEMOGLOBIN 30.5 pg (28.0-32.0); MEAN CORPUSCULAR VOLUME 94.2 fL (81.0-99.0); MEAN PLATELET VOLUME 9.1 fl (7.4-10.4); PLATELET 285 x1000/uL (130-400); RED CELL DISTRIBUTION WIDTH 17.3 % (11.6-14.6)
[2018-04-09] MEDS: INSULIN LISPRO 100 UNITS/ML SUBCUT SCH ×4 (06:36→23:28)
[2018-04-09] MEDS: BLOOD SUGAR DIAGNOSTIC STRIP TEST SCH ×4 (06:37→23:28)
[2018-04-09] MEDS: PIPERACILLIN/TAZ 2.25G PREMIX 50 ML IV SCH ×3 (06:38→15:13)
[2018-04-09 07:57] LABS: CHLORIDE 96 mEq/L (98-107)
[2018-04-09] MEDS: PANTOPRAZOLE SODIUM 40 MG/VIAL IV SCH (08:57)
[2018-04-09 12:00] LABS: PLATELET ESTIMATE NORMAL
[2018-04-09] MEDS ORDERED: LIDOCAINE HCL 1% 20ML VIAL (Pyxis) INJ ONE (12:53)
[2018-04-09] MEDS ORDERED: SODIUM BICARBONATE 4% (2.4MEQ) 5ML VIAL IV ONE (12:53)
[2018-04-09] MEDS: FERROUS SULFATE 325MG TABLET PO SCH ×2 (13:06→17:50)
[2018-04-09] MEDS: ACETAMINOPHEN 650MG/20.3ML UDC PO PRN (13:06)
[2018-04-09 14:33] LABS: T4 FREE 1.12 ng/dL (0.76-1.46)
[2018-04-09] MEDS: ACETYLCYSTEINE 100MG/ML 10% VIAL 4ML INH SCH ×2 (15:00→23:53)
[2018-04-09] MEDS ORDERED: SODIUM CHLORIDE 0.9% IV SCH (16:00)
[2018-04-09] MEDS ORDERED: PAMIDRONATE DISODIUM IV SCH (16:00)
[2018-04-09] MEDS: IPRATROPIUM/ALBUTEROL 0.5-3(2.5)MG/3ML NEB HHN SCH ×3 (16:34→23:53)
[2018-04-09] MEDS: PIPERACILLIN/TAZ 3.375G PREMIX 50 ML IV SCH (17:52)
[2018-04-09] MEDS: INSULIN GLARGINE UD 100 UNITS/ML SYR SUBCUT SCH (21:48)
[2018-04-09] MEDS: VANCOMYCIN 750 MG PREMIX 150 ML IV SCH (23:26)
[2018-04-10] VITALS (12 sets, daily range): BP systolic 92–145; BP diastolic 48–76
[2018-04-10] MEDS: PIPERACILLIN/TAZ 3.375G PREMIX 50 ML IV SCH ×3 (00:55→12:05)
[2018-04-10] MEDS ORDERED: VANCOMYCIN 1250MG in DEXTROSE 5% WATER 250ML IV SCH (03:00)
[2018-04-10] MEDS: IPRATROPIUM/ALBUTEROL 0.5-3(2.5)MG/3ML NEB HHN SCH ×5 (03:59→21:01)
[2018-04-10 06:28] LABS: HEMATOCRIT. 22.6 % (36.0-48.0); HEMOGLOBIN. 7.3 g/dL (12.0-16.0); MEAN CORPUSCULAR HEMOGLOBIN 30.7 pg (28.0-32.0); MEAN CORPUSCULAR VOLUME 94.8 fL (81.0-99.0); MEAN PLATELET VOLUME 9.3 fl (7.4-10.4); PLATELET 276 x1000/uL (130-400); RED BLOOD CELL COUNT 2.38 mill/uL (4.2-5.4); RED CELL DISTRIBUTION WIDTH 17.5 % (11.6-14.6)
[2018-04-10 06:36] LABS: CHLORIDE 98 mEq/L (98-107)
[2018-04-10] MEDS: BLOOD SUGAR DIAGNOSTIC STRIP TEST SCH ×4 (06:44→23:56)
[2018-04-10] MEDS: INSULIN LISPRO 100 UNITS/ML SUBCUT SCH ×3 (06:45→18:41)
[2018-04-10 06:53] LABS: PHOSPHORUS 2.2 mg/dL (2.5-4.9)
[2018-04-10] MEDS: ACETYLCYSTEINE 100MG/ML 10% VIAL 4ML INH SCH ×2 (08:00→16:00)
[2018-04-10] MEDS: PANTOPRAZOLE SODIUM 40 MG/VIAL IV SCH (08:03)
[2018-04-10] MEDS: LEVOTHYROXINE SODIUM 200MCG TABLET GT SCH (08:03)
[2018-04-10] MEDS: FERROUS SULFATE 325MG TABLET PO SCH ×3 (08:03→18:39)
[2018-04-10] MEDS ORDERED: INSULIN GLARGINE UD 100 UNITS/ML SYR SUBCUT SCH (11:30)
[2018-04-10] MEDS ORDERED: SODIUM CHLORIDE IV NR (11:30)
[2018-04-10] MEDS ORDERED: SODIUM PHOS M BASIC D BASIC IV NR (11:30)
[2018-04-10 12:18] LABS: PLATELET ESTIMATE NORMAL
[2018-04-10] MEDS: VANCOMYCIN 750 MG PREMIX 150 ML IV SCH (18:39)
[2018-04-10] MEDS: MEROPENEM 500 MG in SODIUM CHLORIDE 0.9% 50 ML IV SCH (18:39)
[2018-04-10] MEDS: INSULIN GLARGINE UD 100 UNITS/ML SYR SUBCUT SCH (21:57)
[2018-04-11] VITALS (13 sets, daily range): BP systolic 98–122; BP diastolic 44–78
[2018-04-11] MEDS: IPRATROPIUM/ALBUTEROL 0.5-3(2.5)MG/3ML NEB HHN SCH ×6 (00:16→20:44)
[2018-04-11] MEDS: ACETYLCYSTEINE 100MG/ML 10% VIAL 4ML INH SCH ×3 (00:16→16:40)
[2018-04-11] MEDS: INSULIN LISPRO 100 UNITS/ML SUBCUT SCH ×4 (00:16→18:14)
[2018-04-11] MEDS: MEROPENEM 500 MG in SODIUM CHLORIDE 0.9% 50 ML IV SCH ×3 (02:08→18:13)
[2018-04-11] MEDS: BLOOD SUGAR DIAGNOSTIC STRIP TEST SCH ×3 (05:29→18:08)
[2018-04-11] MEDS: LEVOTHYROXINE SODIUM 200MCG TABLET GT SCH (08:01)
[2018-04-11] MEDS: FAMOTIDINE 20MG/2ML VIAL IV SCH (08:01)
[2018-04-11] MEDS: FERROUS SULFATE 325MG TABLET PO SCH ×3 (08:01→18:13)
[2018-04-11] MEDS: VANCOMYCIN 750 MG PREMIX 150 ML IV SCH (10:34)
[2018-04-11] MEDS: INSULIN GLARGINE UD 100 UNITS/ML SYR SUBCUT SCH ×2 (10:35→21:30)
[2018-04-11 14:38] LABS: HEMATOCRIT. 24.4 % (36.0-48.0); HEMOGLOBIN. 7.7 g/dL (12.0-16.0); MEAN CORPUSCULAR HEMOGLOBIN 29.8 pg (28.0-32.0); MEAN CORPUSCULAR VOLUME 94.3 fL (81.0-99.0); PLATELET 298 x1000/uL (130-400); RED BLOOD CELL COUNT 2.59 mill/uL (4.2-5.4); RED CELL DISTRIBUTION WIDTH 17.3 % (11.6-14.6)
[2018-04-11 14:50] LABS: PLATELET ESTIMATE NORMAL
[2018-04-11 15:02] LABS: CHLORIDE 104 mEq/L (98-107)
[2018-04-11 15:08] LABS: PHOSPHORUS 3.3 mg/dL (2.5-4.9)
[2018-04-11] MEDS: MICONAZOLE NITRATE 2% OINT 71GM TOP SCH (21:36)
[2018-04-12] VITALS (12 sets, daily range): BP systolic 94–132; BP diastolic 46–74
[2018-04-12] MEDS: IPRATROPIUM/ALBUTEROL 0.5-3(2.5)MG/3ML NEB HHN SCH ×6 (00:43→20:31)
[2018-04-12] MEDS: ACETYLCYSTEINE 100MG/ML 10% VIAL 4ML INH SCH ×2 (00:44→08:14)
[2018-04-12] MEDS: BLOOD SUGAR DIAGNOSTIC STRIP TEST SCH ×4 (00:54→17:39)
[2018-04-12] MEDS: MEROPENEM 500 MG in SODIUM CHLORIDE 0.9% 50 ML IV SCH ×2 (01:13→09:49)
[2018-04-12] MEDS: INSULIN LISPRO 100 UNITS/ML SUBCUT SCH ×4 (01:14→18:47)
[2018-04-12 06:07] LABS: HEMATOCRIT. 27.3 % (36.0-48.0); HEMOGLOBIN. 8.8 g/dL (12.0-16.0); MEAN CORPUSCULAR HEMOGLOBIN 30.7 pg (28.0-32.0); MEAN CORPUSCULAR VOLUME 94.7 fL (81.0-99.0); MEAN PLATELET VOLUME 8.4 fl (7.4-10.4); PLATELET 345 x1000/uL (130-400); RED BLOOD CELL COUNT 2.88 mill/uL (4.2-5.4); RED CELL DISTRIBUTION WIDTH 16.9 % (11.6-14.6)
[2018-04-12] MEDS: LEVOTHYROXINE SODIUM 200MCG TABLET GT SCH (06:45)
[2018-04-12 06:47] LABS: CHLORIDE 104 mEq/L (98-107)
[2018-04-12 06:58] LABS: CREATINE KINASE 21 IU/L (26-192)
[2018-04-12] MEDS: FAMOTIDINE 20MG/2ML VIAL IV SCH (09:42)
[2018-04-12] MEDS: FERROUS SULFATE 325MG TABLET PO SCH ×3 (09:42→18:45)
[2018-04-12] MEDS: MICONAZOLE NITRATE 2% OINT 71GM TOP SCH ×2 (09:45→21:19)
[2018-04-12] MEDS: INSULIN GLARGINE UD 100 UNITS/ML SYR SUBCUT SCH ×2 (10:55→21:21)
[2018-04-12 11:00] LABS: NUCLEATED RED BLOOD CELLS 1 /100 WBC; PLATELET ESTIMATE NORMAL
[2018-04-12] MEDS ORDERED: DIATR MEGLU/DIATRIZOATE SOLN 30ML PO SCH (14:30)
[2018-04-12] MEDS ORDERED: GENTAMICIN 120MG PREMIX 100 ML IV NR (16:30)
[2018-04-12] MEDS: ACETAMINOPHEN 650MG/20.3ML UDC PO PRN (17:40)
[2018-04-13] VITALS (12 sets, daily range): BP systolic 60–124; BP diastolic 34–55
[2018-04-13] MEDS: IPRATROPIUM/ALBUTEROL 0.5-3(2.5)MG/3ML NEB HHN SCH ×3 (00:19→21:05)
[2018-04-13] MEDS: ACETYLCYSTEINE 100MG/ML 10% VIAL 4ML INH SCH (00:20)
[2018-04-13] MEDS: INSULIN LISPRO 100 UNITS/ML SUBCUT SCH ×5 (01:19→23:13)
[2018-04-13] MEDS ORDERED: DIATR MEGLU/DIATRIZOATE SOLN 30ML PO NR (05:00)
[2018-04-13] MEDS: BLOOD SUGAR DIAGNOSTIC STRIP TEST SCH ×5 (05:01→23:12)
[2018-04-13] MEDS: LEVOTHYROXINE SODIUM 200MCG TABLET GT SCH (06:48)
[2018-04-13 06:58] LABS: HEMATOCRIT. 27.2 % (36.0-48.0); HEMOGLOBIN. 8.7 g/dL (12.0-16.0); MEAN CORPUSCULAR HEMOGLOBIN 30.3 pg (28.0-32.0); MEAN CORPUSCULAR VOLUME 94.9 fL (81.0-99.0); MEAN PLATELET VOLUME 8.7 fl (7.4-10.4); PLATELET 368 x1000/uL (130-400); RED BLOOD CELL COUNT 2.87 mill/uL (4.2-5.4); RED CELL DISTRIBUTION WIDTH 17.2 % (11.6-14.6)
[2018-04-13 07:17] LABS: CHLORIDE 104 mEq/L (98-107)
[2018-04-13] MEDS: FERROUS SULFATE 325MG TABLET PO SCH ×3 (08:42→17:33)
[2018-04-13] MEDS: MICONAZOLE NITRATE 2% OINT 71GM TOP SCH ×2 (08:42→21:51)
[2018-04-13] MEDS: FAMOTIDINE 20MG/2ML VIAL IV SCH ×2 (08:42→10:39)
[2018-04-13] MEDS: INSULIN GLARGINE UD 100 UNITS/ML SYR SUBCUT SCH ×2 (10:40→21:52)
[2018-04-13] MEDS ORDERED: FUROSEMIDE 40MG/4ML VIAL IVP NR (12:30)
[2018-04-13 13:41] LABS: PLATELET ESTIMATE NORMAL
[2018-04-13] MEDS: GENTAMICIN 100MG PREMIX 50 ML IV SCH (17:25)
[2018-04-14] VITALS (11 sets, daily range): BP systolic 90–144; BP diastolic 42–77
[2018-04-14] MEDS: ACETYLCYSTEINE 100MG/ML 10% VIAL 4ML INH SCH ×2 (00:17→08:50)
[2018-04-14] MEDS: IPRATROPIUM/ALBUTEROL 0.5-3(2.5)MG/3ML NEB HHN SCH ×6 (00:17→20:41)
[2018-04-14] MEDS: INSULIN LISPRO 100 UNITS/ML SUBCUT SCH ×4 (06:00→23:41)
[2018-04-14] MEDS: BLOOD SUGAR DIAGNOSTIC STRIP TEST SCH ×4 (06:05→23:30)
[2018-04-14] MEDS: FERROUS SULFATE 325MG TABLET PO SCH ×3 (08:36→18:04)
[2018-04-14] MEDS: LEVOTHYROXINE SODIUM 200MCG TABLET GT SCH (08:36)
[2018-04-14] MEDS: FAMOTIDINE 20MG/2ML VIAL IV SCH (08:46)
[2018-04-14] MEDS: MICONAZOLE NITRATE 2% OINT 71GM TOP SCH ×2 (10:05→21:40)
[2018-04-14] MEDS: INSULIN GLARGINE UD 100 UNITS/ML SYR SUBCUT SCH ×2 (10:06→22:00)
[2018-04-14] MEDS: GENTAMICIN 100MG PREMIX 50 ML IV SCH (18:04)
[2018-04-15] VITALS (11 sets, daily range): BP systolic 83–125; BP diastolic 39–68
[2018-04-15] MEDS: ACETYLCYSTEINE 100MG/ML 10% VIAL 4ML INH SCH (00:22)
[2018-04-15] MEDS: IPRATROPIUM/ALBUTEROL 0.5-3(2.5)MG/3ML NEB HHN SCH ×6 (00:22→20:19)
[2018-04-15] MEDS: BLOOD SUGAR DIAGNOSTIC STRIP TEST SCH ×3 (06:21→18:57)
[2018-04-15] MEDS: LEVOTHYROXINE SODIUM 200MCG TABLET GT SCH (06:47)
[2018-04-15] MEDS: INSULIN LISPRO 100 UNITS/ML SUBCUT SCH ×3 (06:48→18:00)
[2018-04-15 07:34] LABS: HEMATOCRIT. 23.3 % (36.0-48.0); HEMOGLOBIN. 7.8 g/dL (12.0-16.0); MEAN CORPUSCULAR HEMOGLOBIN 31.6 pg (28.0-32.0); MEAN CORPUSCULAR VOLUME 94.8 fL (81.0-99.0); PLATELET 340 x1000/uL (130-400); RED BLOOD CELL COUNT 2.46 mill/uL (4.2-5.4); RED CELL DISTRIBUTION WIDTH 16.6 % (11.6-14.6)
[2018-04-15 08:02] LABS: CHLORIDE 106 mEq/L (98-107)
[2018-04-15 08:11] LABS: GENTAMICIN RANDOM 3.8 ug/mL
[2018-04-15] MEDS: MICONAZOLE NITRATE 2% OINT 71GM TOP SCH ×2 (08:45→21:18)
[2018-04-15] MEDS: FAMOTIDINE 20MG/2ML VIAL IV SCH (08:45)
[2018-04-15] MEDS: FERROUS SULFATE 325MG TABLET PO SCH ×3 (08:45→19:00)
[2018-04-15] MEDS: INSULIN GLARGINE UD 100 UNITS/ML SYR SUBCUT SCH ×2 (09:50→23:30)
[2018-04-15 13:19] LABS: PLATELET ESTIMATE NORMAL
[2018-04-16] VITALS (16 sets, daily range): BP systolic 83–126; BP diastolic 43–70
[2018-04-16] MEDS: BLOOD SUGAR DIAGNOSTIC STRIP TEST SCH ×5 (00:04→23:14)
[2018-04-16] MEDS: INSULIN LISPRO 100 UNITS/ML SUBCUT SCH ×5 (00:08→23:28)
[2018-04-16] MEDS: IPRATROPIUM/ALBUTEROL 0.5-3(2.5)MG/3ML NEB HHN SCH ×7 (00:24→23:56)
[2018-04-16] MEDS: GENTAMICIN SULFATE 200 MG in SODIUM CHLORIDE 0.9% 100 ML IV SCH (05:44)
[2018-04-16] MEDS: LEVOTHYROXINE SODIUM 200MCG TABLET GT SCH (05:45)
[2018-04-16] MEDS: FERROUS SULFATE 325MG TABLET PO SCH ×3 (09:50→18:29)
[2018-04-16] MEDS: MICONAZOLE NITRATE 2% OINT 71GM TOP SCH ×2 (09:50→22:05)
[2018-04-16] MEDS: FAMOTIDINE 20MG/2ML VIAL IV SCH (09:50)
[2018-04-16] MEDS: INSULIN GLARGINE UD 100 UNITS/ML SYR SUBCUT SCH ×2 (11:09→21:55)
[2018-04-16] MEDS: ACETAMINOPHEN 650MG/20.3ML UDC PO PRN (23:28)
[2018-04-17] VITALS (21 sets, daily range): BP systolic 96–163; BP diastolic 42–76
[2018-04-17] MEDS: IPRATROPIUM/ALBUTEROL 0.5-3(2.5)MG/3ML NEB HHN SCH ×5 (03:54→20:21)
[2018-04-17] MEDS: BLOOD SUGAR DIAGNOSTIC STRIP TEST SCH ×4 (05:14→23:50)
[2018-04-17] MEDS: INSULIN LISPRO 100 UNITS/ML SUBCUT SCH ×4 (05:43→23:52)
[2018-04-17] MEDS: LEVOTHYROXINE SODIUM 200MCG TABLET GT SCH (08:32)
[2018-04-17] MEDS: FAMOTIDINE 20MG/2ML VIAL IV SCH (08:32)
[2018-04-17] MEDS: FERROUS SULFATE 325MG TABLET PO SCH ×3 (08:32→17:18)
[2018-04-17] MEDS: MICONAZOLE NITRATE 2% OINT 71GM TOP SCH ×2 (08:33→21:04)
[2018-04-17 08:52] LABS: CHLORIDE 106 mEq/L (98-107)
[2018-04-17] MEDS: INSULIN GLARGINE UD 100 UNITS/ML SYR SUBCUT SCH ×2 (11:16→23:13)
[2018-04-18] VITALS (10 sets, daily range): BP systolic 104–159; BP diastolic 50–78
[2018-04-18] MEDS: IPRATROPIUM/ALBUTEROL 0.5-3(2.5)MG/3ML NEB HHN SCH ×6 (00:10→20:29)
[2018-04-18] MEDS: BLOOD SUGAR DIAGNOSTIC STRIP TEST SCH ×3 (05:58→17:25)
[2018-04-18] MEDS: GENTAMICIN SULFATE 200 MG in SODIUM CHLORIDE 0.9% 100 ML IV SCH (05:58)
[2018-04-18] MEDS: INSULIN LISPRO 100 UNITS/ML SUBCUT SCH ×3 (05:59→18:20)
[2018-04-18] MEDS: FERROUS SULFATE 325MG TABLET PO SCH ×3 (08:13→18:20)
[2018-04-18] MEDS: MICONAZOLE NITRATE 2% OINT 71GM TOP SCH (08:14)
[2018-04-18] MEDS: FAMOTIDINE 20MG/2ML VIAL IV SCH (08:14)
[2018-04-18] MEDS: LEVOTHYROXINE SODIUM 200MCG TABLET GT SCH (08:14)
[2018-04-18] MEDS: INSULIN GLARGINE UD 100 UNITS/ML SYR SUBCUT SCH ×2 (10:00→21:20)
== END 2018-04-18 23:25 | DRG 720 ==
LOC: ER 16:48 → 5EST 17:21 → EDBEDREQ 18:50 → ENRESERV 20:17
PROVIDERS: ADMIT Internal Medicine; ATTEND Internal Medicine
PROC: 5A1955Z Respiratory Ventilation, Greater than 96 Consecutive Hours (ICD-10-PCS; principal; 2018-04-08)
PROC: 02H633Z Insertion of Infusion Device into Right Atrium, Percutaneous Approach (ICD-10-PCS; 2018-04-09)
PROC: B244ZZZ Ultrasonography of Right Heart (ICD-10-PCS; 2018-04-09)
PROC: 30233N1 Transfusion of Nonautologous Red Blood Cells into Peripheral Vein, Percutaneous Approach (ICD-10-PCS; 2018-04-09)
PROC: 02HV33Z Insertion of Infusion Device into Superior Vena Cava, Percutaneous Approach (ICD-10-PCS; 2018-04-13)
DX: A41.51 Sepsis due to Escherichia coli [E. coli] (principal); J96.20 Acute and chronic respiratory failure, unspecified whether with hypoxia or hypercapnia; R65.21 Severe sepsis with septic shock; E43 Unspecified severe protein-calorie malnutrition; J95.851 Ventilator associated pneumonia; G82.50 Quadriplegia, unspecified; J81.1 Chronic pulmonary edema; G93.40 Encephalopathy, unspecified; Z99.11 Dependence on respirator [ventilator] status; E87.3 Alkalosis; Z93.0 Tracheostomy status; L89.154 Pressure ulcer of sacral region, stage 4; N17.9 Acute kidney failure, unspecified; E11.22 Type 2 diabetes mellitus with diabetic chronic kidney disease; Z66 Do not resuscitate; C67.9 Malignant neoplasm of bladder, unspecified; D63.8 Anemia in other chronic diseases classified elsewhere; E11.51 Type 2 diabetes mellitus with diabetic peripheral angiopathy without gangrene; G35 Multiple sclerosis; D50.9 Iron deficiency anemia, unspecified; E03.9 Hypothyroidism, unspecified; E11.65 Type 2 diabetes mellitus with hyperglycemia; E22.1 Hyperprolactinemia; E66.01 Morbid (severe) obesity due to excess calories; E83.52 Hypercalcemia; E86.0 Dehydration; E87.1 Hypo-osmolality and hyponatremia; E87.70 Fluid overload, unspecified; F03.90 Unspecified dementia, unspecified severity, without behavioral disturbance, psychotic disturbance, mood disturbance, and anxiety; I25.10 Atherosclerotic heart disease of native coronary artery without angina pectoris; J98.11 Atelectasis; K21.9 Gastro-esophageal reflux disease without esophagitis; L03.113 Cellulitis of right upper limb; B95.2 Enterococcus as the cause of diseases classified elsewhere; Z16.21 Resistance to vancomycin; J44.9 Chronic obstructive pulmonary disease, unspecified; N18.3 Chronic kidney disease, stage 3 (moderate); N39.0 Urinary tract infection, site not specified; R13.10 Dysphagia, unspecified; M19.90 Unspecified osteoarthritis, unspecified site; Z16.12 Extended spectrum beta lactamase (ESBL) resistance; Z51.5 Encounter for palliative care; J84.9 Interstitial pulmonary disease, unspecified; Z79.890 Hormone replacement therapy; Z85.51 Personal history of malignant neoplasm of bladder; Z86.73 Personal history of transient ischemic attack (TIA), and cerebral infarction without residual deficits; Z93.1 Gastrostomy status; Z93.3 Colostomy status; Z79.4 Long term (current) use of insulin; Z68.34 Body mass index [BMI] 34.0-34.9, adult; Z79.51 Long term (current) use of inhaled steroids; Z79.1 Long term (current) use of non-steroidal anti-inflammatories (NSAID); Z79.899 Other long term (current) drug therapy
CPT/HCPCS: 36415; 36569; 36600; 71045; 73060; 74176; 76937; 80048; 80170; 80202; 82270; 82375; 82550; 82805; 82962; 83540; 83550; 83605; 83735; 83880; 83970; 84100; 84145; 84439; 84443; 84481; 84484; 85044; 86850; 86900; 86920; 87077; 87186; 93005; 93970; 94002; 94003; 94640; 96374; 96375; 99291; C1725; C9113; J1580; J1815; J1940; J1956; J2185; J2430; J2543; J3370; J3490; J7030; J7040; J7050; J7060; J7608; J7620; P9016; Q9963